=== PATIENT | male | born 1955 | race Caucasian/White ===

== ENCOUNTER 2023-03-06 20:52 | Observation (INO) | payer MEDICARE, MEDICAID, SELFPAY ==
[2023-03-06 20:52] VITALS: BP 89/55; PULSE 94; RESP 16; TEMP 36.7; O2SAT 100
--- NOTE | 2023-03-06 20:55 | XR_ITS ---
The [address] [address] Patient Name: CHITRA BOWLING MRN: [id number] date: 1955 Sex: M Assigned Patient Location: ED.MAIN Current Patient Location: ER Accession/Order Number: [id number] Exam Date: 03/06/2023 21:25 Report Date: 03/06/2023 22:23 At the request of: SUE CRESPO Procedure: XR hip LT min 2V EXAM: XR hip LT min 2V HISTORY: fall COMPARISON: None. TECHNIQUE: 2 views of the left hip FINDINGS: Patient is post left hip arthroplasty with intact prosthesis in normal alignment. No significant periprosthetic lucency seen. No acute osseous fracture is seen. Soft tissues appear unremarkable. XR/XR hip LT min 2V IMPRESSION: No acute fracture or malalignment. Post left hip replacement. Electronically authenticated by: PALOMO KITCHEN Date: 03/06/2023 22:23
--- NOTE | 2023-03-06 20:55 | CT_ITS ---
The [address] [address] Patient Name: CHITRA BOWLING MRN: [id number] date: 1955 Sex: M Assigned Patient Location: ED.MAIN Current Patient Location: Accession/Order Number: [id number] Exam Date: 03/06/2023 21:25 Report Date: 03/06/2023 22:10 At the request of: SUE CRESPO Procedure: CT cervical spine wo con EXAM: CT cervical spine wo con HISTORY: fall COMPARISON: None. TECHNIQUE: Axial CT scans through the cervical spine were obtained without contrast administration. Sagittal and coronal reconstruction images were obtained. Dose reduction techniques were achieved by using automated exposure control and/or adjustment of mA and/or kV according to patient size and/or use of iterative reconstruction technique. FINDINGS: No acute fracture or posttraumatic malalignment is seen. The dens and lateral masses of C1 are symmetric. There is straightening of the normal cervical lordotic curvature. There is mild anterolisthesis of C3 on C4. There are moderate to severe decreased disc height and discovertebral complexes from C4 to C7 without significant central spinal stenosis. There are multilevel neural foraminal narrowing, severe at bilateral C4-5 and C5-6 levels, moderate at bilateral C3-4, mild at left C2-3 and bilateral C6-7 levels, secondary to decreased disc height, uncovertebral hypertrophy and facet arthropathy. The prevertebral soft tissue space appears normal. Visualized neck shows no adenopathy. Vascular calcifications are noted. CT/CT cervical spine wo con IMPRESSION: No visualized acute cervical spine abnormality. Multilevel cervical spondylosis, most prominent at C4-7 levels, as described. Electronically authenticated by: JOHNATHAN REBOLLARU Date: 03/06/2023 22:10
--- NOTE | 2023-03-06 20:55 | XR_ITS ---
The [address] [address] Patient Name: CHITRA BOWLING MRN: [id number] date: 1955 Sex: M Assigned Patient Location: ED.MAIN Current Patient Location: ER Accession/Order Number: [id number] Exam Date: 03/06/2023 21:25 Report Date: 03/06/2023 22:24 At the request of: SUE CRESPO Procedure: XR knee RT 3V EXAMINATION: XR knee RT 3V, , 03/06/2023 9:25 PM EDT INDICATION: fall HISTORY: Ordering Provider Reason for Exam: fall Technologist Note: Additional: COMPARISON: None. TECHNIQUE: Right knee x-ray: 3 view(s). FINDINGS: No acute fracture. Joint alignment is anatomic. Joint spaces are preserved. No significant joint effusion. Soft tissues are within normal limits. XR/XR knee RT 3V IMPRESSION: No acute fracture or traumatic malalignment. Electronically authenticated by: PALOMO KITCHEN Date: 03/06/2023 22:24
--- NOTE | 2023-03-06 20:56 | CT_ITS ---
The [address] [address] Patient Name: CHITRA BOWLING MRN: [id number] date: 1955 Sex: M Assigned Patient Location: ED.MAIN Current Patient Location: Accession/Order Number: [id number] Exam Date: 03/06/2023 21:25 Report Date: 03/06/2023 21:55 At the request of: SUE CRESPO Procedure: CT head/brain wo con EXAM: CT head/brain wo con HISTORY: fall COMPARISON: None. TECHNIQUE: Axial CT scans through the head were obtained without IV contrast administration. Dose reduction techniques were achieved by using: automated exposure control and/or adjustment of mA and /or kV according to patient size and/or use of iterative reconstruction technique. FINDINGS: There is no evidence of acute intracranial hemorrhage or abnormal extra-axial fluid collection. No mass effect or midline shift is seen. There is no evidence of large acute territorial infarction. There is no hydrocephalus. Mild enlarged cerebral sulci, consistent with age appropriate cerebral atrophy. Mild atherosclerotic calcifications of anterior and posterior circulations are seen. To the limit of CT, the posterior fossa appears unremarkable. No definite acute fracture is identified. Soft tissues are unremarkable. The visualized orbits show no abnormal mass. The visualized paranasal sinuses show no air-fluid level. Mastoid air cells are clear. CT/CT head/brain wo con IMPRESSION: No CT evidence of acute intracranial abnormality. Electronically authenticated by: JOHNATHAN UNLU Date: 03/06/2023 21:55
--- NOTE | 2023-03-06 20:56 | XR_ITS ---
The [address] [address] Patient Name: CHITRA BOWLING MRN: [id number] date: 1955 Sex: M Assigned Patient Location: ED.MAIN Current Patient Location: ER Accession/Order Number: [id number] Exam Date: 03/06/2023 21:25 Report Date: 03/06/2023 22:24 At the request of: SUE CRESPO Procedure: XR chest 1V XR chest 1V 03/06/2023 9:25 PM EDT CLINICAL INDICATION: Weakness COMPARISON: None. TECHNIQUE: Portable semiupright AP view of the chest. FINDINGS: There are no tubes or implants noted. There is severe enlargement of the cardiac silhouette. Pulmonary trunk appears dilated. Interstitial and perihilar opacities are seen bilaterally. Probable right lower lobe calcified granuloma. No pneumothorax or pleural effusion. No displaced rib fractures. Osseous structures demonstrate degenerative changes. There is increased density seen in the expected location of the stomach fundus which may represent ingested material. XR/XR chest 1V IMPRESSION: Severe enlargement of the cardiac silhouette with additional findings which may represent mild pulmonary interstitial edema or infectious etiology. Electronically authenticated by: YUNIOR AN Date: 03/06/2023 22:24
--- NOTE | 2023-03-06 20:57 | ED_ITS ---
HPI - General Adult General Chief complaint: Altered Mental Status Stated complaint: ALTERED MENTAL STATUS Time Seen by Provider: 03/06/23 20:55 History of Present Illness HPI narrative: 67-year-old male presents for being unresponsive. Paramedics were called and on their arrival he was sitting on the floor laying up against a wall and he wasn't responsive. They rubbed his sternum and he started responding and now he is fully awake and alert. He states he drank a small amount of tequila tonight. There is no evidence of trauma. He hasn't had a fever and doesn't seem to have any physical complaints Other than left hip and right knee pain. He did not receive Narcan. The patient states he doesn't know what happened. Related Data Allergies Allergy/AdvReac Type Severity Reaction Status Date / Time bee venom protein (honey bee) Allergy Verified 03/06/23 20:57 Review of Systems ROS Narrative A ten point review of systems is negative except as noted above. Exam Narrative Exam Narrative: Nurses note and vital signs reviewed and patient is not hypoxic. General: The patient appears well and in no apparent distress. Patient is resting comfortably on cart. Skin: Warm, dry, no pallor noted. There is no rash noted. Head: Normocephalic, atraumatic Eye: Normal conjunctiva, no drainage, EOMI. PERRL Ears, Nose, Mouth, and Throat: oral mucosa is moist. Nares patent. Cardiovascular: Regular Rate and Rhythm Respiratory: Patient is in no distress, no accessory muscle use, lungs are clear to auscultation, no wheezing, rales or rhonchi Back: non-tender GI: obese soft and nontender Musculoskeletal: The patient has no evidence of calf tenderness, no pitting edema, symmetrical pulses noted bilaterally. he has no deformity to his extremities but seems to have some tenderness to palpation is left hip and his right knee. No bruising noted. Neurological: A&O, normal speech Psychiatric: Cooperative Constitutional Vital Signs, click to edit/add: Last Vital Signs Temp 98.0 F 03/06/23 20:52 Pulse 94 H 03/06/23 20:52 Resp 16 03/06/23 20:52 BP 112/58 03/06/23 21:05 Pulse Ox 100 03/06/23 20:52 O2 Del Method Room Air 03/06/23 20:52 Course Vital Signs Vital signs: Vital Signs Temperature 98.0 F 03/06/23 20:52 Pulse Rate 94 H 03/06/23 20:52 Respiratory Rate 16 03/06/23 20:52 Blood Pressure 89/55 03/06/23 20:52 Pulse Oximetry 100 03/06/23 20:52 Oxygen Delivery Method Room Air 03/06/23 20:52 Temperature 98.0 F 03/06/23 20:52 Pulse Rate 94 H 03/06/23 20:52 Respiratory Rate 16 03/06/23 20:52 Blood Pressure 112/58 03/06/23 21:05 Pulse Oximetry 100 03/06/23 20:52 Oxygen Delivery Method Room Air 03/06/23 20:52 Medical Decision Making MDM Narrative Medical decision making narrative: the patient presented after having what appears to be a syncopal episode. His w orkup is negative including CAT scan of his head and left hip and right knee x- rays. His family is concerned about him and he'll be admitted for observation. Treatment diagnosis and disposition were discussed thoroughly. Differential Diagnosis Differential Diagnosis: syncope, intracranial hemorrhage, dysrhythmia, anemia Lab Data Lab results reviewed: Yes I reviewed the patient's lab results Labs: Lab Results 03/06/23 Range/Units 21:06 WBC 8.4 (4.0-11.0) 10^3/uL RBC 4.78 (4.70-6.10) 10^6/uL Hgb 14.8 (14.0-18.0) g/dL Hct 44.0 (42.0-54.0) % MCV 92.1 (80.0-94.0) fL MCH 31.0 (25.9-34.0) pg MCHC 33.6 (29.9-35.2) g/dL RDW 13.6 (11.0-15.0) % Plt Count 267 (150-450) 10^3/uL MPV 10.9 (9.5-13.5) fL Neut % (Auto) 52.1 (43.0-75.0) % Lymph % (Auto) 34.4 (20.5-60.0) % Appling % (Auto) 8.2 (1.7-12.0) % Eos % (Auto) 3.7 (0.9-7.0) % Baso % (Auto) 1.2 (0.2-2.0) % Neut # (Auto) 4.4 (1.4-6.5) 10^3/uL Lymph # (Auto) 2.9 (1.2-3.8) 10^3/uL Appling # (Auto) 0.7 (0.3-0.8) 10^3/uL Eos # (Auto) 0.3 (0.0-0.7) 10^3/uL Baso # (Auto) 0.1 (0.0-0.1) 10^3/uL Abs Immat Gran (auto) 0.03 (0.00-0.03) 10^3/uL Imm/Tot Granulo (auto) 0.4 (0.0-0.5) % Sodium 141 (136-145) mmol/L Potassium 4.0 (3.5-5.1) mmol/L Chloride 103 (98-107) mmol/L Carbon Dioxide 27.2 (21.0-32.0) mmol/L Anion Gap 14.8 BUN 16.0 (7.0-18.0) mg/dL Creatinine 1.07 (0.70-1.30) mg/dL Est GFR ( Amer) >60 (>=60) Est GFR (Non-Af Amer) >60 (>=60) BUN/Creatinine Ratio 15.0 Glucose 94 (74-106) mg/dL Calcium 9.8 (8.5-10.1) mg/dL Troponin I High Sens 6.0 (4.0-76.1) pg/mL Ethanol Quant 90 mg/dL Imaging Data CT brain, left hip, right knee: Radiologist's impression: Procedure: CT cervical spine wo con EXAM: CT cervical spine wo con HISTORY: fall COMPARISON: None. TECHNIQUE: Axial CT scans through the cervical spine were obtained without contrast administration. Sagittal and coronal reconstruction images were obtained. Dose reduction techniques were achieved by using automated exposure control and/or adjustment of mA and/or kV according to patient size and/or use of iterative reconstruction technique. FINDINGS: No acute fracture or posttraumatic malalignment is seen. The dens and lateral masses of C1 are symmetric. There is straightening of the normal cervical lordotic curvature. There is mild anterolisthesis of C3 on C4. There are moderate to severe decreased disc height and discovertebral complexes from C4 to C7 without significant central spinal stenosis. There are multilevel neural foraminal narrowing, severe at bilateral C4-5 and C5-6 levels, moderate at bilateral C3-4, mild at left C2-3 and bilateral C6-7 levels, secondary to decreased disc height, uncovertebral hypertrophy and facet arthropathy. The prevertebral soft tissue space appears normal. Visualized neck shows no adenopathy. Vascular calcifications are noted. IMPRESSION: No visualized acute cervical spine abnormality. Multilevel cervical spondylosis, most prominent at C4-7 levels, as described. Electronically authenticated by: Richard Pauer - 3P Date: 03/06/2023 22:10 Procedure: CT head/brain wo con EXAM: CT head/brain wo con HISTORY: fall COMPARISON: None. TECHNIQUE: Axial CT scans through the head were obtained without IV contrast administration. Dose reduction techniques were achieved by using: automated exposure control and/or adjustment of mA and /or kV according to patient size and/or use of iterative reconstruction technique. FINDINGS: There is no evidence of acute intracranial hemorrhage or abnormal extra-axial fluid collection. No mass effect or midline shift is seen. There is no evidence of large acute territorial infarction. There is no hydrocephalus. Mild enlarged cerebral sulci, consistent with age appropriate cerebral atrophy. Mild atherosclerotic calcifications of anterior and posterior circulations are seen. To the limit of CT, the posterior fossa appears unremarkable. No definite acute fracture is identified. Soft tissues are unremarkable. The visualized orbits show no abnormal mass. The visualized paranasal sinuses show no air-fluid level. Mastoid air cells are clear. IMPRESSION: No CT evidence of acute intracranial abnormality. Electronically authenticated by: Richard Pauer - 3P Date: 03/06/2023 21:55 Procedure: CT head/brain wo con EXAM: CT head/brain wo con HISTORY: fall COMPARISON: None. TECHNIQUE: Axial CT scans through the head were obtained without IV contrast administration. Dose reduction techniques were achieved by using: automated exposure control and/or adjustment of mA and /or kV according to patient size and/or use of iterative reconstruction technique. FINDINGS: There is no evidence of acute intracranial hemorrhage or abnormal extra-axial fluid collection. No mass effect or midline shift is seen. There is no evidence of large acute territorial infarction. There is no hydrocephalus. Mild enlarged cerebral sulci, consistent with age appropriate cerebral atrophy. Mild atherosclerotic calcifications of anterior and posterior circulations are seen. To the limit of CT, the posterior fossa appears unremarkable. No definite acute fracture is identified. Soft tissues are unremarkable. The visualized orbits show no abnormal mass. The visualized paranasal sinuses show no air-fluid level. Mastoid air cells are clear. IMPRESSION: No CT evidence of acute intracranial abnormality. Electronically authenticated by: JOHNATHAN UNLU Date: 03/06/2023 21:55 Procedure: XR hip LT min 2V EXAM: XR hip LT min 2V HISTORY: fall COMPARISON: None. TECHNIQUE: 2 views of the left hip FINDINGS: Patient is post left hip arthroplasty with intact prosthesis in normal alignment. No significant periprosthetic lucency seen. No acute osseous fracture is seen. Soft tissues appear unremarkable. IMPRESSION: No acute fracture or malalignment. Post left hip replacement. Electronically authenticated by: PALOMO KITCHEN Date: 03/06/2023 22:23 Procedure: XR knee RT 3V EXAMINATION: XR knee RT 3V, , 03/06/2023 9:25 PM EDT INDICATION: fall HISTORY: Ordering Provider Reason for Exam: fall Technologist Note: Additional: COMPARISON: None. TECHNIQUE: Right knee x-ray: 3 view(s). FINDINGS: No acute fracture. Joint alignment is anatomic. Joint spaces are preserved. No significant joint effusion. Soft tissues are within normal limits. IMPRESSION: No acute fracture or traumatic malalignment. Electronically authenticated by: PALOMO KITCHEN Date: 03/06/2023 22:24 Discharge Plan Discharge Chief Complaint: Altered Mental Status Clinical Impression: Syncope Patient Disposition: Admitted as Observation Time of Disposition Decision: 00:07 Condition: Good
[2023-03-06 21:05] VITALS: BP 112/58
[2023-03-06 21:22] LABS: Basophils Absolute Auto 0.1 10^3/uL (0.0-0.1); Basophils Percent Auto 1.2 % (0.2-2.0); Eosinophils Absolute Auto 0.3 10^3/uL (0.0-0.7); Eosinophils Percent Auto 3.7 % (0.9-7.0); Hemoglobin 14.8 g/dL (14.0-18.0); Immature Granulocytes Abs Auto 0.03 10^3/uL (0.00-0.03); Immature Granulocytes Pct Auto 0.4 % (0.0-0.5); Lymphocytes Absolute Auto 2.9 10^3/uL (1.2-3.8); Lymphocytes Percent Auto 34.4 % (20.5-60.0); Mean Corpuscular HGB Conc 33.6 g/dL (29.9-35.2); Mean Corpuscular Volume 92.1 fL (80.0-94.0); Mean Platelet Volume 10.9 fL (9.5-13.5); Monocytes Absolute Auto 0.7 10^3/uL (0.3-0.8); Monocytes Percent Auto 8.2 % (1.7-12.0); Neutrophils Absolute Auto 4.4 10^3/uL (1.4-6.5); Neutrophils Percent Auto 52.1 % (43.0-75.0); Platelet Count 267 10^3/uL (150-450); Red Blood Count 4.78 10^6/uL (4.70-6.10); Red Cell Distribution Width 13.6 % (11.0-15.0); White Blood Count 8.4 10^3/uL (4.0-11.0)
[2023-03-06 21:39] LABS: Ethanol 90 mg/dL
[2023-03-06 21:47] LABS: Anion Gap 14.8; Calcium 9.8 mg/dL (8.5-10.1); Carbon Dioxide 27.2 mmol/L (21.0-32.0); Chloride 103 mmol/L (98-107); Estimated GFR (African America >60 (>=60); Estimated GFR (Non-African Ame >60 (>=60); Glucose 94 mg/dL (74-106); Sodium 141 mmol/L (136-145)
[2023-03-06] MEDS: MORPHINE SULFATE 4 MG/ML VIAL IV (22:41)
[2023-03-06] MEDS: 0.9 % SODIUM CHLORIDE 1,000 ML 1000 ML IV (23:15)
[2023-03-07] VITALS (18 sets, daily range): BP systolic 101–143; BP diastolic 66–86; PULSE 56–75; RESP 18–20; TEMP 36.4–36.7; O2SAT 93–96; BMI 41.8
[2023-03-07] MEDS: KETOROLAC TROMETHAMINE 30 MG/ML VIAL IVP (00:19)
--- NOTE | 2023-03-07 03:00 | CA_ITS ---
Patient: CHITRA BOWLING Exam Date: 03/08/2023 : 1955 Gender:M Ordering : SHAIKH Eugene LINCOLN . Admission #: [id number] Family : DR CHANDA JACKSON M.D. Order #: [id number] CLICK HERE TO VIEW EXAM ECHOCARDIOGRAM REPORT PROCEDURE: CA ECHO DOPPLER COMPLETE INDICATIONS: Syncope, h/o atrial fibrillation, cardiomegaly hypertension, h/o MA COMPARISON: None. DESCRIPTION: COMPLETE ECHOCARDIOGRAM Real-time transthoracic echocardiography with 2D, M-mode, spectral and color flow Doppler performed. QUALITY: Technical quality was adequate. LEFT VENTRICLE: Normal chamber size. Moderate concentric left ventricular hypertrophy. LV EF: Normal left ventricular ejection fraction, (>55%). Unable to assess segmental wall motion abnormality; consider contrast study for better delineation of endocardial borders. DIASTOLIC: Diastolic function is indeterminate. ATRIAL SEPTUM: Visually appears intact. LEFT ATRIUM: Mild dilatation. RIGHT ATRIUM: Mild dilatation. RIGHT VENTRICLE: Normal chamber size. Normal right ventricular systolic function. TRICUSPID VALVE: Normal mobility and thickness. No stenosis with trivial regurgitation. No evidence of pulmonary hypertension.RVSP 30 mmHg MITRAL VALVE: Normal mobility and thickness. No evidence of mitral valve stenosis. Mild mitral annular calcification. No mitral regurgitation. AORTIC VALVE: Normal trileaflet appearance. Mildly calcified aortic valve. No evidence of aortic valve stenosis. Trivial aortic regurgitation. AORTIC ROOT: Normal diameter and appearance. PULMONIC VALVE: Normal thickness and mobility. No stenosis. No regurgitation. PERICARDIUM: Anterior free space; trivial effusion versus fat pad. IVC: Collapses with inspirations. IVC is normal in size. CONCLUSION: 1. Global left ventricular systolic function is normal; visually estimated ejection fraction is 55 to 60% 2. Moderately increased left ventricular wall thickness 3. Diastolic function is indeterminate 4. Biatrial enlargement 5. The right ventricle is normal in size and systolic function 6. No significant valvular abnormalities 7. Anterior free space; trivial effusion versus fat pad Adult Echocardiography Procedure Report Left Ventricle LVEDD (3.7 - 5.6 cm): 4.61 cm LVESD (2.2 - 4.0 cm): 3.24 cm LVIVS thickness (0.6 - 1.2 cm): 1.35 cm LVPW thickness (0.5 - 1.0 cm): 1.25 cm e': 0.09 m/s E - e': 7.65 LVOT Max Gradient: 1.40 mm[Hg] LVOT Area (cm2): 0.59 m/s Peak Velocity (LVOT): 0.59 m/s LVOT Diameter 2.39 cm Left Atrium LA Volume Index (2D A2C): 38.69 ml/m2 Left Atrium Systolic Dimension: 4.15 cm Mitral Valve MV E to A Ratio: 1.16 Mitral Valve A-Wave Peak Velocity: 0.61 m/s Mitral Valve E-Wave Peak Velocity: 0.71 m/s Right Ventricle Aorta AO Root Diam: 4.21 cm Ascending Ao Diam: 3.92 cm Aortic Valve AoV Area (Peak Kristopher): 2.30 cm2, 2.30 cm2 Peak Velocity(Antegrade Flow): 1.15 m/s Peak Gradient(Antegrade Flow): 5.30 mm[Hg] Mean Velocity(Antegrade Flow): 0.79 m/s Mean Gradient(Antegrade Flow): 2.82 mm[Hg] Velocity Time Integral: 23.60 cm Tricuspid Valve Peak Velocity (Regurgitant Flow): 2.04 m/s, 2.58 m/s Pulmonic Valve Mean Gradient: 1.49 mm[Hg] Mean Velocity: 0.57 m/s Peak Velocity: 0.81 m/s, 0.82 m/s Peak Gradient: 2.65 mm[Hg], 2.71 mm[Hg] Right Atrium Right Atrium Systolic Pressure: 53.49 ml, 53.49 ml Dictated by: Aretha Kwan M.D. on 03/09/2023 at 12:44 Approved by: Aretha Kwan M.D. on 03/09/2023 at 12:48
--- NOTE | 2023-03-07 03:11 | W.PM.TELEPN ---
Progress Note: Subjective Subjective Interval history: Chief Complaint: LOC, Fall HPI: 67 y/o Male with history of history of DM II, HTN, HDL, morbid obesity who presents to the hospital for evaluation of loss of consciousness. Patient reports he has been in his normal state of health, no recent illness, 2 weeks ago he had episode of abdominal discomfort nausea and vomiting that self-resolved. Otherwise he has been in his normal state of health. Last evening he had a glass of Tequila and about 30 minutes later he cannot recall any events. Apparently his daughter found him down unresponsive take them several minutes to wake him up. He complained of left hip pain after he woke up. There was no bruising or bleeding noted. Denies any history of syncope, seizure-like activity. Denies any bladder or bowel incontinence, tongue biting, he does have a frontal headache he believes he might hit his head when he fell down. He cannot recall any preceding events of lightheadedness, vertigo, dizziness, palpitations, near-syncope. Denies any change in his medications and his been compliant with his medications. Denies any exertional chest pain or exertional dyspnea. Denies lightheadedness with standing up. Upon arrival to the ER patient is afebrile, normotensive, CT head without acute abnormalities, labs near baseline. Hospital Medicine consulted for further evaluation. Patient did receive morphine for his left hip pain, plain films without any dislocation or fracture. Patient states he has chronic hip pain that he usually takes 2 Tylenol and 1 ibuprofen that usually takes care of the pain. ROS: Negative except for HPI PMHx: DM II, HTN, HDL, Morbid obesity, PSHx: hip replacement SHx: lives with daughter, occasional alcohol intake, denies smoking cigarettes or illicit drug use family history: Noncontributory to today's visit Allergies:Bee venom Home medications: reconciled in chart PE: Gen: lying in bed, in mild distress due to left hip pain, alert and oriented x3 HEENT: normocephalic, atraumatic, EOMI, trachea midline CVS: regular rate and rhythm, no edema Resp: clear lungs, normal respiratory effort GI: obese, nontender, no visible masses Neuro: moving all extremities, no focal deficits Exam Constitutional Vital Signs, click to edit/add: Last Vital Signs Temp 97.6 F 03/07/23 02:02 Pulse 63 03/07/23 02:02 Resp 18 03/07/23 02:02 BP 137/83 03/07/23 02:02 Pulse Ox 96 03/07/23 02:02 O2 Del Method Room Air 03/07/23 02:02 Progress Note: Objective Labs Labs: Short CBC 03/06/23 Range/Units 21:06 WBC 8.4 (4.0-11.0) 10^3/uL Hgb 14.8 (14.0-18.0) g/dL Hct 44.0 (42.0-54.0) % Plt Count 267 (150-450) 10^3/uL BMP 03/06/23 21:06 Sodium 141 Potassium 4.0 Chloride 103 Carbon Dioxide 27.2 BUN 16.0 Creatinine 1.07 Glucose 94 Calcium 9.8 Progress Note: A&P Assessment and Plan (1) Syncope: (2) Atrial fibrillation: (3) Cardiomegaly: (4) Hypertension: (5) Myocardial infarction: Plan Loss of consciousness/Found down - Syncope vs Seizure or alcohol intoxication -Admit to telemetry bed -Check orthostatic vitals -Check Echo and carotid duplex, consider outpatient holter monitor -Neuro-checks, consider EEG -Consider cardiology evaluation -Check CPK level -Check EKG, QT interval Diabetes mellitus type II - check A1c level - hold home metformin, low carb diet, SSI coverage Primary hypertension - Monitor vitals, resume home antihypertensives (Amlodipine, Losartan, Eplerenone) Paroxysmal Afib -On Sotalol, Aspirin Hyperlipidemia - on Lipitor morbid obesity BMI 41 DVT ppx-Lovenox Full Code Medication reconciliation form completed communications: discussed with ER physician, bedside nurse, patient updated of plan of care, all questions answered to their satisfaction disposition: Home when medically stable As the provider of this telehealth evaluation, requested by the patient's evaluating physician, i attest that i introduced myself to the patient, provided my credentials, and determined that telemedicine, via a realtime 2 way interactive audio and video platform is an appropriate and effective means of providing this service. I reviewed the patient chart and had a discussion with the member of the patient treatment team. the patient and I mutually agreed with continuation of this evaluation via telemedicine. the patient consented for the telemedicine evaluation. The nurse was present during the entire time of the encounter and was able to move the stethoscope in appropriate directions, encounter lasted about 30 minutes evaluated at 0330 Telemedicine Attestation Telemedicine Attestation I conducted this encounter from [[place]] via secure live, [id number] video conference with the patient, located at [facility] with [nursing staff]. Prior to the interview, the risks and benefits of telemedicine were discussed with the patient and verbal consent was obtained.
[2023-03-07] MEDS: THIAMINE HCL 200 MG/2 ML VIAL IVP (04:02)
[2023-03-07] MEDS: ENOXAPARIN SODIUM 40 MG/0.4 ML SYRINGE SUBQ (04:04)
[2023-03-07] MEDS: ACETAMINOPHEN 500 MG TABLET 1000 MG PO ×2 (04:04→09:42)
[2023-03-07] MEDS: FOLIC ACID 1 MG TABLET PO (04:05)
[2023-03-07] MEDS: LACTATED RINGER'S SOLUTION 1,000 ML 125 ML IV (04:05)
[2023-03-07 04:52] LABS: Creatine Kinase 112 U/L (39-308)
[2023-03-07] MEDS: LOSARTAN POTASSIUM 25 MG TABLET PO (11:16)
[2023-03-07] MEDS: SOTALOL HCL 80 MG TABLET 120 MG PO ×2 (11:16→21:06)
[2023-03-07] MEDS: ASPIRIN 81 MG TABLET.DR PO (11:16)
[2023-03-07 11:18] LABS: Glucometer 97 mg/dL (74-106)
[2023-03-07] MEDS: IBUPROFEN 600 MG TABLET PO ×2 (11:39→20:02)
--- NOTE | 2023-03-07 11:52 | ECG_ITS ---
[facility] Test Date: 2023-03-07 Pat Name: CHITRA BOWLING Department: Room: [facility] [place] [facility] [place] Gender: Male Dietist: : 1955 Requested By: SHAIKH LATONIA Order Number: [id number] Reading MD: PAL BENNETT Measurements Intervals [place] Rate: 60 P: 42 NE: 293 QRS: 21 QRSD: 102 T: 41 QT: 428 QTc: 432 Interpretive Statements SINUS BRADYCARDIA WITH FIRST DEGREE AV BLOCK LOW QRS VOLTAGE IN PRECORDIAL LEADS [QRS DEFLECTION < 1.0 mV IN CHEST LEADS] ST DEVIATION AND MODERATE T-WAVE ABNORMALITY, CONSIDER ANTERIOR ISCHEMIA [-0.1+ mV T WAVE IN V3/V4] No previous ECG available for comparison Electronically Signed On 03-07-2023 18:45:53 EDT by PAL BENNETT
--- NOTE | 2023-03-07 12:47 | P.HP_ITS ---
H&P: HPI History of Present Illness Chief complaint: Syncope Narrative: 67 y o male with Pmhx of Afib was in his usual state of health when at home he went to kitchen to get some water and then the next thing he knows is that he was on floor. He does not recall passing out, how long he was passed out for. He was confused afterwards but was back to his usual self by the time he arrived to ED via EMS. Prior to syncope - he did not have aura, chest pain, SOB, palpitations, dizziness. This was all very sudden and he did not have any warning signs. He has never passed out before like this. No new medications. Had orthopedic surgery in August. Normal LHC in March 2022 because of abnormal stress test ordered for pre op clearance. Currently complaining of headache and denies any active complaints. Review of Systems ROS Status of ROS 10 or more systems reviewed and unremarkable except as noted in history and below [facility] Medical History (Updated 03/07/23 @ 12:54 by Shaikh Yulissa MD) Acute kidney injury ?N17.9 - Acute kidney failure, unspecified (ICD-10) Anal fistula ?K60.3 - Anal fistula (ICD-10) Atrial fibrillation ?I48.91 - Unspecified atrial fibrillation (ICD-10) Cardiomegaly ?I51.7 - Cardiomegaly (ICD-10) Cholelithiasis and acute cholecystitis with obstruction ?K80.01 - Calculus of gallbladder with acute cholecystitis with obstruction (ICD-10) HLD (hyperlipidemia) ?E78.5 - Hyperlipidemia, unspecified (ICD-10) Hypertension ?I10 - Essential (primary) hypertension (ICD-10) Myocardial infarction ?I21.9 - Acute myocardial infarction, unspecified (ICD-10) Type 2 diabetes mellitus ?E11.9 - Type 2 diabetes mellitus without complications (ICD-10) Surgical History (Updated 03/07/23 @ 02:07 by Tony Perkins) H/O cardiac catheterization ?Z98.890 - Other specified postprocedural states (ICD-10) History of left hip replacement ?Z96.642 - Presence of left artificial hip joint (ICD-10) History of right hip replacement ?Z96.641 - Presence of right artificial hip joint (ICD-10) Family History (Updated 03/07/23 @ 02:08 by Tony Perkins) Brother Family history of hypertension Father Family history of cancer Social History (Updated 03/07/23 @ 02:14 by Tony Perkins) Within the past year, how often did you have a drink containing alcohol: 2-3 times a week Within the past year, how many standard drinks containing alcohol did you have on a typical day: 1 or 2 Within the past year, how often did you have six or more drinks on one occasion: never Total score: 0 Score interpretation: A score less than 4 is consistent with normal alcohol consumption. Smoking status: Former smoker Second hand tobacco smoke exposure: No Non-prescribed substance use: denies use Previous occupational history: Sales Known occupational exposures/hazards: No Highest level of school completed/degree received: some college, no degree Do you want help with school or training: No Are you now , , , , never or living with a partner: In a typical week, how many times do you talk on the telephone with family, friends, or neighbors: 3 or more times per week How often do you get together with friends or relatives: twice per week How often do you attend oriental orthodox or jainism services: never Do you belong to any clubs or organizations such as oriental orthodox groups unions, fraternal or athletic groups, or school groups: yes Total score: 2 Score interpretation: A score of greater than or equal to 2 indicates the lowest level of social isolation. Little interest or pleasure in doing things: not at all Feeling down, depressed, or hopeless: not at all Feel stressed/tense/nervous/anxious/difficulty sleeping: only a little Life stressors: recent of family or friend Due to disability, difficulty making decisions: No Do you think of yourself as: straight/heterosexual Gender Identity: male Meds Home Medications and Allergies Home Medications Medication Instructions Recorded Confirmed Type acetaminophen 500 mg tablet 500 mg PO Q6H PRN pain 03/07/23 03/07/23 History amlodipine 2.5 mg tablet 2.5 mg PO DAILY 03/07/23 03/07/23 History aspirin 81 mg tablet,delayed 81 mg PO DAILY 03/07/23 03/07/23 History release atorvastatin 40 mg tablet 40 mg PO .hs 03/07/23 03/07/23 History celecoxib 100 mg capsule 100 mg PO BID 03/07/23 03/07/23 History diclofenac sodium 1 % topical gel 2 g topical QID 03/07/23 03/07/23 History eplerenone 50 mg tablet 50 mg PO DAILY 03/07/23 03/07/23 History ibuprofen 600 mg tablet 600 mg PO Q6H PRN pain 03/07/23 03/07/23 History losartan 25 mg tablet 25 mg PO DAILY 03/07/23 03/07/23 History metformin 500 mg tablet,extended 500 mg PO QPM 03/07/23 03/07/23 History release 24 hr semaglutide 1 mg/dose (4 mg/3 mL) 1 mg subcut QWEEK 03/07/23 03/07/23 History subcutaneous pen injector (Ozempic) sotalol 120 mg tablet 120 mg PO BID 03/07/23 03/07/23 History torsemide 10 mg tablet 10 mg PO DAILY 03/07/23 03/07/23 History Allergies Allergy/AdvReac Type Severity Reaction Status Date / Time bee venom protein (honey bee) Allergy Verified 03/06/23 20:57 Exam Constitutional Vital Signs, click to edit/add: Last Vital Signs Temp 97.8 F 03/07/23 05:53 Pulse 65 03/07/23 11:55 Resp 18 03/07/23 05:53 BP 120/66 03/07/23 07:38 Pulse Ox 96 03/07/23 05:53 O2 Del Method Room Air 03/07/23 05:53 Documenting provider has reviewed patient's vital signs: yes Common normals: no apparent distress and oriented x3 General appearance: cooperative HENID Common normals: normocephalic and head/scalp atraumatic Head and scalp: normocephalic and atraumatic Eye Common normals: conjunctivae normal and no scleral icterus Conjunctiva: conjunctiva(e) normal Respiratory Common normals: normal respiratory effort and clear to auscultation bilaterally Effort & inspection: able to speak in complete sentences Auscultation: clear to auscultation bilaterally Cardio Common normals: regular rate, S1 normal heart sound and S2 normal heart sound Rate: regular rate Heart sounds: S1 normal and S2 normal GI Common normals: Normal to inspection, nondistended, normoactive bowel sounds present, soft to palpation, non-tender and no hepatosplenomegaly Palpation: soft and no hepatosplenomegaly Extremity Common normals: no clubbing, cyanosis or edema Neuro Common normals: oriented x3, moves all extremities and no focal motor deficits Psych Common normals: mental status grossly normal, denies hallucinations, denies homicidal ideation and denies suicidal ideation Results Labs Labs: Short CBC 03/06/23 Range/Units 21:06 WBC 8.4 (4.0-11.0) 10^3/uL Hgb 14.8 (14.0-18.0) g/dL Hct 44.0 (42.0-54.0) % Plt Count 267 (150-450) 10^3/uL BMP 03/06/23 21:06 Sodium 141 Potassium 4.0 Chloride 103 Carbon Dioxide 27.2 BUN 16.0 Creatinine 1.07 Glucose 94 Calcium 9.8 Cardiac Enzymes 03/06/23 Range/Units 21:06 Total Creatine Kinase 112 (39-308) U/L Assessment and Plan Assessment and Plan (1) Syncope: Assessment and Plan: EKG showed Afib. Now in NSR. Repeat EKG. Ordered 2D ECHO to assess cardiac structure as cardiomegaly noted on CXR Will order CTA to r/o PE Does not appear to be vasovagal syncope Monitor on tele. If everything checks out, will d/c on event monitor and to f/u with cardiology. (2) Atrial fibrillation: Assessment and Plan: In NSR. C/w sotalol (3) Hypertension: Assessment and Plan: C/w home meds. (4) Type 2 diabetes mellitus: Assessment and Plan: SSI while inpatient. (5) HLD (hyperlipidemia): Assessment and Plan: c/w statin
--- NOTE | 2023-03-07 12:52 | CT_ITS ---
The [address] [address] Patient Name: CHITRA BOWLING MRN: [id number] date: 1955 Sex: M Assigned Patient Location: Current Patient Location: Accession/Order Number: [id number] Exam Date: 03/07/2023 14:30 Report Date: 03/07/2023 15:26 At the request of: SHAIKH LATONIA Procedure: CT angio chest CT angio chest, 03/07/2023 2:30 PM EDT INDICATION: Syncope COMPARISON: This study was compared to the prior chest x-ray dated 03/06/2023 TECHNIQUE: Axial low-dose images of 1 millimeters are obtained from the thoracic outlet without contrast . 3-D MIP images were obtained. Dose reduction techniques were achieved by using automated exposure control and/or adjustment of mA and/or kV according to patient size and/or use of iterative reconstruction technique. FINDINGS: No endoluminal filling defect within the main pulmonary arteries, lobar and lobular branches is noted. There is no obvious right ventricle strain. There is cardiomegaly. Enlargement of the ascending aorta is noted measuring 4.2 x 4.5 cm at the main pulmonary artery bifurcation. The right pulmonary artery measures 2.8 cm. The descending aorta measures 2.5 cm. No evidence of dissection. No enlargement of the pulmonary veins in the base of lungs is noted. Calcified granuloma in the right lower lobe is noted. There is bilateral ground glass opacities within the both lungs likely due to infectious or inflammatory process or pulmonary edema. Mild traction bronchiectasis in the upper lobes are noted. The central tracheobronchial tree is unremarkable. No mediastinal lymph node enlargement by size criteria is noted. No pleural or pericardial effusion is noted. Low-attenuation lesion within the liver is not fully characterized by this study and most likely consistent with a hemangioma or simple cyst. The visualized portions of the solid abdominal organs are otherwise unremarkable. Bone: There is no suspicious osteolytic or osteoblastic lesion. CT/CT angio chest IMPRESSION: No pulmonary emboli or dissection is noted. Bilateral groundglass opacities with cardiomegaly and no pleural effusion. The findings may suggest infectious or inflammatory process or pulmonary edema. Clinical correlation is advised. Electronically authenticated by: JEY MARRERO Date: 03/07/2023 15:26
[2023-03-07] MEDS: TORSEMIDE 20 MG TABLET 10 MG PO (13:32)
[2023-03-07] MEDS: ACETAMINOPHEN 325 MG TABLET 650 MG PO (15:49)
[2023-03-07 16:04] LABS: Glucometer 85 mg/dL (74-106)
[2023-03-07 20:31] LABS: Glucometer 121 mg/dL (74-106)
[2023-03-07] MEDS: ATORVASTATIN CALCIUM 40 MG TABLET PO (21:06)
[2023-03-08] VITALS (9 sets, daily range): BP systolic 103–150; BP diastolic 70–79; PULSE 52–69; RESP 17–24; TEMP 36.5–36.6; O2SAT 91–96
[2023-03-08 06:06] LABS: Basophils Absolute Auto 0.1 10^3/uL (0.0-0.1); Basophils Percent Auto 1.6 % (0.2-2.0); Eosinophils Absolute Auto 0.3 10^3/uL (0.0-0.7); Eosinophils Percent Auto 4.5 % (0.9-7.0); Hematocrit 40.4 % (42.0-54.0); Hemoglobin 13.1 g/dL (14.0-18.0); Immature Granulocytes Abs Auto 0.02 10^3/uL (0.00-0.03); Immature Granulocytes Pct Auto 0.3 % (0.0-0.5); Lymphocytes Absolute Auto 1.8 10^3/uL (1.2-3.8); Lymphocytes Percent Auto 27.8 % (20.5-60.0); Mean Corpuscular HGB Conc 32.4 g/dL (29.9-35.2); Mean Corpuscular Hemoglobin 30.3 pg (25.9-34.0); Mean Corpuscular Volume 93.5 fL (80.0-94.0); Mean Platelet Volume 10.8 fL (9.5-13.5); Monocytes Absolute Auto 0.5 10^3/uL (0.3-0.8); Monocytes Percent Auto 7.3 % (1.7-12.0); Neutrophils Absolute Auto 3.7 10^3/uL (1.4-6.5); Neutrophils Percent Auto 58.5 % (43.0-75.0); Platelet Count 186 10^3/uL (150-450); Red Blood Count 4.32 10^6/uL (4.70-6.10); Red Cell Distribution Width 13.6 % (11.0-15.0); White Blood Count 6.4 10^3/uL (4.0-11.0)
[2023-03-08 06:55] LABS: Alanine Aminotransferase 32 U/L (16-63); Albumin Globulin Ratio 0.9; Albumin Level 3.2 g/dL (3.4-5.0); Alkaline Phosphatase 63 U/L (46-116); Anion Gap 7.3; Aspartate Amino Transferase 19 U/L (15-37); BUN Creatinine Ratio 19.4; Calcium 8.8 mg/dL (8.5-10.1); Carbon Dioxide 30.7 mmol/L (21.0-32.0); Chloride 106 mmol/L (98-107); Estimated GFR (African America >60 (>=60); Estimated GFR (Non-African Ame >60 (>=60); Globulin 3.4 g/dL; Glucose 88 mg/dL (74-106); Sodium 140 mmol/L (136-145); Total Protein 6.6 g/dL (6.4-8.2)
[2023-03-08 07:44] LABS: Glucometer 100 mg/dL (74-106)
[2023-03-08] MEDS: ASPIRIN 81 MG TABLET.DR PO (09:10)
[2023-03-08] MEDS: FOLIC ACID 1 MG TABLET PO (09:10)
[2023-03-08] MEDS: LOSARTAN POTASSIUM 25 MG TABLET PO (09:10)
[2023-03-08] MEDS: SOTALOL HCL 80 MG TABLET 120 MG PO (09:11)
[2023-03-08] MEDS: TORSEMIDE 20 MG TABLET 10 MG PO (09:13)
[2023-03-08] MEDS: ENOXAPARIN SODIUM 40 MG/0.4 ML SYRINGE SUBQ (09:13)
[2023-03-08] MEDS: ACETAMINOPHEN 325 MG TABLET 650 MG PO (09:31)
[2023-03-08] MEDS: IBUPROFEN 600 MG TABLET PO (09:32)
[2023-03-08 11:36] LABS: Glucometer 125 mg/dL (74-106)
--- NOTE | 2023-03-08 11:36 | CM.NOTE ---
Rounds made with Dr. Duenas. Dr. Duenas reviewed CT Chest with Mr. 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 Mr. Farrar verbalizes understanding. Plan for discharge today.
--- NOTE | 2023-03-08 13:12 | CA_ITS ---
[facility] Test Date: 2023-03-22 Pat Name: CHITRA BOWLING Department: Room: [facility] Gender: Male Public Service Director: : 1955 Requested By: [id number] Order Number: [id number] Reading MD: PAL BENNETT Interpretive Statements Predominant rhythm is sinus with average rate of 69 bpm Tachycardia - max rate of 142 bpm - 48 episodes of PSVT with longest duration of 7 beats - longest episode of 44 sec with rate between 106-123 bpm Bradycardia - min rate of 33 bpm - longest episode of 1 hour with rates between 41-55 bpm Ventricular ectopy - 234 total (<1% ) - 226 PVC - 8 couplets Patient triggered events: 3 - not associated with symptoms - associated with NSR Impression: Predominant rhythm is sinus with average rate of 69 bpm Fastest rate of 142 bpm and slowest rate of 48 bpm - no pauses - 3-4 episodes of nonconducted P waves, suggestive of Wenckebach - no atrial fibrillation Electronically Signed On 03-22-2023 20:20:38 EDT by PAL BENNETT
--- NOTE | 2023-03-08 13:14 | PM.DS1 ---
DS: Providers Provider Date of admission: 03/07/23 01:41 Primary care physician: Non-Staff Physician, Attending physician on discharge: Shaikh Yulissa Discharging clinician: Shaikh Yulissa Anticipated date of discharge: 03/08/23 DS: Diagnosis Discharge Diagnosis (1) Syncope: Assessment and plan: CTH - no acute finding No abnormal finding on tele 2D ECHO - no sig pathology noted (unofficial report). Will d/c with Holter Monitor for 72 hours. (2) Atrial fibrillation: Assessment and plan: In NSR. Follows [facility]. (3) Hypertension: Assessment and plan: Cw. home medsC.w (4) Type 2 diabetes mellitus: Assessment and plan: C/w home meds (5) HLD (hyperlipidemia): Plan C/w statin DS: Summary Hospital Course Hospital Course: 67 y o male with Pmhx of Afib was in his usual state of health when at home he went to kitchen to get some water and then the next thing he knows is that he was on floor. He does not recall passing out, how long he was passed out for. He was confused afterwards but was back to his usual self by the time he arrived to ED via EMS. Prior to syncope - he did not have aura, chest pain, SOB, palpitations, dizziness. This was all very sudden and he did not have any warning signs. He has never passed out before like this. No new medications. Patient was admitted for observation and w.u for syncope. No abnormality noted on diagnostic w.u including CTH, 2D ECHO and no abnormal rhythm noted on tele CTA chest ordered to r/p PE revealed dilated ascending aorta (4.2 cm) - patient informed and will need f.u for it. Status at Discharge Functional status at discharge: independent ambulation Overall status at discharge: patient is back to baseline Time Spent with Patient Time attestation: Total time spent providing and/or coordinating discharge services: Time spent: greater than 30 minutes Exam Constitutional Vital Signs, click to edit/add: Last Vital Signs Temp 97.7 F 03/08/23 08:16 Pulse 62 03/08/23 12:00 Resp 17 03/08/23 08:16 BP 123/77 03/08/23 08:00 Pulse Ox 96 03/08/23 08:16 O2 Del Method Room Air 03/08/23 08:16 Documenting provider has reviewed patient's vital signs: yes Common normals: no apparent distress and oriented x3 General appearance: cooperative HENMT Common normals: normocephalic and head/scalp atraumatic Head and scalp: normocephalic and atraumatic Eye Common normals: conjunctivae normal and no scleral icterus Conjunctiva: conjunctiva(e) normal Respiratory Common normals: normal respiratory effort and clear to auscultation bilaterally Effort & inspection: able to speak in complete sentences Auscultation: clear to auscultation bilaterally Cardio Common normals: regular rate, S1 normal heart sound and S2 normal heart sound Rate: regular rate Heart sounds: S1 normal and S2 normal GI Common normals: Normal to inspection, nondistended, normoactive bowel sounds present, soft to palpation, non-tender and no hepatosplenomegaly Palpation: soft and no hepatosplenomegaly Extremity Common normals: no clubbing, cyanosis or edema Neuro Common normals: oriented x3, moves all extremities and no focal motor deficits Psych Common normals: mental status grossly normal, denies hallucinations, denies homicidal ideation and denies suicidal ideation DS: Data Data Completed and Pending Labs on day of discharge: Labs from last 24 hours 03/08/23 03/08/23 03/08/23 11:35 07:27 05:36 WBC 6.4 RBC 4.32 L Hgb 13.1 L Hct 40.4 L MCV 93.5 MCH 30.3 MCHC 32.4 RDW 13.6 Plt Count 186 MPV 10.8 Neut % (Auto) 58.5 Lymph % (Auto) 27.8 [place] % (Auto) 7.3 Eos % (Auto) 4.5 Baso % (Auto) 1.6 Neut # (Auto) 3.7 Lymph # (Auto) 1.8 [place] # (Auto) 0.5 Eos # (Auto) 0.3 Baso # (Auto) 0.1 Abs Immat Gran (auto) 0.02 Imm/Tot Granulo (auto) 0.3 Sodium 140 Potassium 4.0 Chloride 106 Carbon Dioxide 30.7 Anion Gap 7.3 BUN 19.0 H Creatinine 0.98 Est GFR ( Amer) >60 Est GFR (Non-Af Amer) >60 BUN/Creatinine Ratio 19.4 Glucose 88 Calcium 8.8 Total Bilirubin 1.0 AST 19 ALT 32 Alkaline Phosphatase 63 Total Protein 6.6 Albumin 3.2 L Globulin 3.4 Albumin/Globulin Ratio 0.9 POC Glucose 125 H 100 03/07/23 03/07/23 20:29 16:00 WBC RBC Hgb Hct MCV MCH MCHC RDW Plt Count MPV Neut % (Auto) Lymph % (Auto) [place] % (Auto) Eos % (Auto) Baso % (Auto) Neut # (Auto) Lymph # (Auto) [place] # (Auto) Eos # (Auto) Baso # (Auto) Abs Immat Gran (auto) Imm/Tot Granulo (auto) Sodium Potassium Chloride Carbon Dioxide Anion Gap BUN Creatinine Est GFR ( Amer) Est GFR (Non-Af Amer) BUN/Creatinine Ratio Glucose Calcium Total Bilirubin AST ALT Alkaline Phosphatase Total Protein Albumin Globulin Albumin/Globulin Ratio POC Glucose 121 H 85 Discharge Plan Discharge Disposition: Home, Self-Care Condition: Good Discharge Medications: Continued atorvastatin 40 mg tablet 40 mg PO .hs amlodipine 2.5 mg tablet 2.5 mg PO DAILY aspirin 81 mg tablet,delayed release (DR/EC) 81 mg PO DAILY sotalol 120 mg tablet 120 mg PO BID acetaminophen 500 mg tablet 500 mg PO Q6H PRN (Reason: pain) losartan 25 mg tablet 25 mg PO DAILY ibuprofen 600 mg tablet 600 mg PO Q6H PRN (Reason: pain) celecoxib 100 mg capsule 100 mg PO BID eplerenone 50 mg tablet 50 mg PO DAILY torsemide 10 mg tablet 10 mg PO DAILY Ozempic 1 mg/dose (4 mg/3 mL) pen injector 1 mg subcut QWEEK diclofenac sodium 1 % gel 2 g topical QID Rx Instructions: apply to single elbow, wrist or hand; for hand includes palm/fingers/back of hand metformin 500 mg tablet extended release 24 hr 500 mg PO QPM Activity: increase activity as tolerated Diet: advance to your usual diet Forms: Portal Instructions Follow Up Appointments: Follow Up with Dr. Trent Wednesday03/12/2023 at 2 p.m. f/u PCP in one week
--- NOTE | 2023-03-09 11:36 | CM.DCFOLLOWU ---
Person spoke with: daughter Annetta How are you feeling? Annetta stated he was doing much better yesterday evening but is at work currently and has not spoken with him yet today. How is your pain? n/a Did you understand your discharge instructions? Yes Do you have any questions about your discharge instructions? No Were you given any prescriptions at discharge? No Were you able to get your prescriptions filled? n/a Do you understand how to take your medications as ordered? yes Do you have any questions about your follow up appointment and do you plan to keep your follow up appointment? plans on keeping both appointments, one with Dr. Trent and one with Dr. Huber. Is there anything else that you would like to discuss? mentioned his heart monitor fell off last night and he contacted the road design draftsperson, he replaced patches. Informed Annetta to have him contact the hospital if he has further issues. She voiced understanding and stated they would. Questions/Comments/Concerns/Other: n/a
== END 2023-03-08 14:37 | disposition home or self-care (01) ==
LOC: ER 03-07 00:07 → MS 03-07 01:50
PROVIDERS: Admitting Provider Internal Medicine; Emergency Provider Emergency Medicine; Visit Provider Internal Medicine
DX: R55 Syncope and collapse (principal); I48.0 Paroxysmal atrial fibrillation; E11.9 Type 2 diabetes mellitus without complications; I11.9 Hypertensive heart disease without heart failure; E78.5 Hyperlipidemia, unspecified; E66.01 Morbid (severe) obesity due to excess calories; Z68.41 Body mass index [BMI] 40.0-44.9, adult; I25.2 Old myocardial infarction; Z79.899 Other long term (current) drug therapy; Z79.84 Long term (current) use of oral hypoglycemic drugs; Z79.82 Long term (current) use of aspirin; Z96.643 Presence of artificial hip joint, bilateral; Z87.891 Personal history of nicotine dependence
CPT/HCPCS: 36415; 70450; 71045; 71275; 72125; 73502; 73562; 80048; 80053; 80320; 82550; 82948; 83735; 84484; 85025; 93005; 93242; 93306; 96361; 96372; 96374; 96375; 99285; G0378; Q3014; Q9967

== ENCOUNTER 2024-11-18 08:17 | Outpatient (OUT) | payer MEDICARE, MEDICAID, SELFPAY ==
--- OUTSIDE RECORDS SUMMARY | 2018-01-10 05:08 | XMS_ITS | Continuity of Care Document ---
Author Organization [facility] Address [address] [place] [address] Phone Care Team Providers Care Market Risk Specialist Name Role Phone Jonas Cannon MD Unavailable Unavailable Allergies, Adverse Reactions, Alerts Substance Reaction Status Criticality BEE STING KIT throat swelling(severe) Active No Information Medications Medication Instructions Dosage Effective Dates (start - stop) Status Comments amlodipine 5 mg tablet take 1 tablet by oral route every day 5 MG - Active atorvastatin 10 mg tablet take 1 tablet by oral route every day 10 MG - Active lisinopril 20 mg-hydrochlorothiaz avani 12.5 mg tablet take 1 tablet by oral route every day 1.00 tablet - Active amlodipine 5 mg tablet take 1 tablet by oral route every day 5 MG - No Longer Active atorvastatin 10 mg tablet take 1 tablet by oral route every day 10 MG - No Longer Active lisinopril 20 mg-hydrochlorothiaz avani 12.5 mg tablet take 1 tablet by oral route every day 1.00 tablet - No Longer Active Procedures Procedure Date ROUTINE VENIPUNCTURE OFFICE/OUTPATIENT VISIT, EST IMMUNIZATION ADMIN FLU VAC NO PRSV 4 ALMAS 3 YRS+ Advance Directives Directive Yes / No Effective Date File Name No Information Encounters Encounter Description Practice Location Reason(s) For Visit Diagnoses Date Provider Providers Copied on Encounter [facility], [address], [place], [id number] , [place] tel:[phone] [facility] No Information 8 Davis Mcdaniel. [address], [place], [id number] , [place]. tel: [phone] [facility], [address] [place] [address], [id number] , [place] tel: [phone] [facility] No Information 8 Davis Mcdaniel. [address], [place], [id number] , [place]. tel: [phone] [facility], [address] [place] [address], [id number] , [place] tel: [phone] [facility] No Information 8 Davis Mcdaniel. [address] [place] [address], [id number] , [place]. tel: [phone] OFFICE/OUTPA TIENT VISIT, [facility] ([place], [place]), [address] [place] [address], [id number] , [place] tel: [phone] [facility] follow up (chief complaint) Type 2 diabetes mellitus without complicationsChronic atrial fibrillationEssential (primary) hypertensionHyperlipi demia 8 Davis Mcdaniel. [address] [place] [address], [id number] , [place]. tel: [phone] [facility], [address] [place] [address], [id number] , [place] tel: [phone] [facility] [place]: (chief complaint) Essential (primary) hypertensionObesity, unspecifiedBody mass index (BMI) 40.0-44.9, adultBenign prostatic hyperplasia w/o lower urinary tract symptom 8 Abdias Cobian. [address] [place] [address], [id number], [place]. tel: [phone] Family History Family Member Type Diagnosis Age At Onset Mother Problem (finding) alzheimer's disease Father Problem (finding) cancer of colon Brother Problem (finding) hypertension Immunizations Vaccine Date Status Comments Influenza virus vaccine, injectable, quadrivalent, split virus, preservative free, 3 years or older Fluarix, Flulaval or Fluzone Quad administered Source: New Immuniza tion Record Payers Payer name Insurance type Covered libertarian ID Authoriza tion(s) Self Pay Cap 09 Social History Type Description Quantity Date Captured Comments Alcohol Use Details Unknown Caffeine Use Details Unknown Tobacco Use Status No Information Smoking Status No Information Sex Male Sexual Orientation Straight or heterosexual Gender Identity Male Chief Complaint And Reason For Visit No Information Reason For Referral Reason For Referral No Information Plan Of Treatment Date Type Action Status Goal Diabetes screening. Due on A due Goal ECG. Due on due Goal Dental exam. Due on 018 due Goal Lipid panel. Due on 019 due Goal Pneumococcal vaccine. Due on due Goal Hemoglobin A1C. Due on due Goal Urine microalbumin. Due on A due Goal Dilated eye exam. Due on Jan due Goal Foot exam. Due on 8 due Goal ECG. Due on due Goal Diabetes screening. Due on due Goal Urinalysis. Due on 18 due Goal Pneumococcal vaccine. Due on due Goal Foot exam. Due on 8 due Goal Dental exam. Due on 018 due Goal Urine microalbumin. Due on due Goal Dilated eye exam. Due on October due Goal Diabetes screening. Due on A due Goal ECG. Due on due Goal Urinalysis. Due on due Goal Lipid panel. Due on due Goal Pneumococcal vaccine. Due on due Goal Dilated eye exam. Due on Sep due Goal Foot exam. Due on 8 due Goal Dental exam. Due on due Goal Urine microalbumin. Due on A due Goal Lipid panel. Due on due Goal Pneumococcal vaccine. Due on due Goal Dilated eye exam. Due on Sep due Goal Foot exam. Due on due Goal Dental exam. Due on due Goal Hemoglobin A1C. Due on due Goal Urine microalbumin. Due on A due Goal Urinalysis. Due on due Goal Diabetes screening. Due on A due Goal ECG. Due on due Goal ECG. Due on due Goal Urinalysis. Due on due Goal Diabetes screening. Due on due Future Order: Lab Order UA/M w/r flx Culture, Routine ([id number]), Ordered on: Ordered Future Order: Lab Order Lipid Pa mare ([id number]), Ordered on: Ordered Future Order: Lab Order PSA Tota l+% Free ([id number]), Ordered on: Ordered Future Order: Lab Order TSH+Free T4 ([id number]), Ordered on: Ordered Future Order: Lab Order CBC With Differential/Platelet ([id number]), Ordered on: Ordered Future Order: Lab Order Comp. Me tabolic Panel (14) ([id number]), Ordered on: Ordered History Of Present Illness Encounter Date Complaint History Of Prese nt Illness follow up Patient here to follow up. Patient was here in Jun. and seen Dr. Calero. Patient was told to come back and follow up. Patient was told by Abdias he was waiting for office notes from Dr. Miller. to see blood work. Renu was not happy with Paul because he was wanting him to return to have blood work done every month. Patient is uninsured and couldn't. Patient would like refills on all his med but for a 90 day supply. No other issues at this time.Ajith Denton. 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 Is on Lisinopril - HCTZ and Atorvastatin and Amlodopine. Works for [employer]. Had repair of an anal fissure and left ganglion cyst of the left wrist. Has had high blood pressure all my life. Has had cardioversions for A-fib, at least a few. His last chemistries were done this past March. Had a colonoscopy four or 5 years ago and it was negative. Functional Status Date Functional Assessmen t No Information Instructions Date Instruction Additional Infor mation No Information Assessments Type Assessment Date No Information Patient Care Teams Name Effective Dates (start - stop) Status Members No Information
--- OUTSIDE RECORDS SUMMARY | 2024-11-18 08:24 | XMS_ITS | Clinical Summary ---
Author Organization [facility] Address [address] [place] [address] Care Team Providers Care Cable Tester Name Role Phone Dewayne Huber MD Primary Care Provider Allergies Active Allergy Reactions Criticality Noted Date Comments Bee Venom 09/21/2024 Iodine 09/21/2024 Medications atorvastatin (Lipitor) 40 MG tablet Take 40 mg by mouth Daily Active torsemide (Demadex) 10 MG tablet Take 10 mg by mouth Daily Active amLODIPine (Norvasc) 2.5 MG tablet Take by mouth Daily Active cyanocobalamin (Vitamin B-12) 100 MCG tablet Take 100 mcg by mouth Daily Active zinc gluconate 50 MG tablet Take 50 mg by mouth Daily Active magnesium 30 MG tablet Take 30 mg by mouth in the morning and 30 mg before bedtime. Active [place]-3 Fatty Acids (Fish Oil) 1000 MG capsule delayed-release Take 1,000 mg by mouth in the morning and 1,000 mg before bedtime. Active metFORMIN (Glucophage) 500 MG tablet Take 500 mg by mouth in the morning. Take with meals. Active eplerenone (Inspra) 50 MG tablet Take 50 mg by mouth Daily Active dabigatran etexilate (Pradaxa) 150 MG capsule Take 150 mg by mouth in the morning and 150 mg before bedtime. Do not crush or chew. Active celecoxib (CeleBREX) 100 MG capsule Take 100 mg by mouth in the morning and 100 mg before bedtime. Active Active Problems No known active problems Encounters Date Type Department Care Team Description 09/21/2024 8:00 AM EDT Office Visit [facility] [address] [place] [id number] Kvng Davison DPM Ingrowing nail, left great toe (Primary Dx); Left foot pain; Xerosis cutis; Nail dystrophy; Pain in toes of both feet 09/21/2024 Bamboo flowsheet [facility] [address] [place] [id number] Kvng Davison DPM 09/21/2024 Travel 09/13/2024 Telephone [facility] [address] [place] [phone] Kvng Davison DPM from Last 3 Months Social History Tobacco Use Types Packs/Day Years Used Date Smoking Tobacco: Never Assessed Sex and Gender Information Value Date Recorded Sex Assigned at Not on file Legal Sex Male 6:41 PM EDT Gender Identity Not on file Sexual Orientation Not on file Last Filed Vital Signs Vital Sign Reading Time Taken Comments Blood Pressure 128/92 05/05/2018 12:00 PM EST Pulse - - Temperature - - Respiratory Rate - - Oxygen Saturation - - Inhaled Oxygen Concentration - - Weight 128 kg (283 lb 3.2 oz) 05/05/2018 12:00 P M EST Height 170.8 cm (5' 7.25 ) 05/05/2018 12:[address] Body Mass Index 44.03 05/05/2018 12:00 PM EST Plan of Treatment Health Maintenance Due Date Last Done Comments CT Colonography 1956 Colonoscopy 1955 Colorectal Cancer Screening 1955 FIT-DNA 1955 FIT 1956 FOBT 1955 Sigmoidoscopy 1955 Influenza Vaccine (Season Ended) 2025 04/28/2021, 04/12/2020, 03/23/2020, Additional history exists Pneumococcal Vaccine: 65+ Years Completed 3 Insurance MEDICARE MEDICAID [place] [employer] MED[employer] [employer]AGE Care Teams Cable Tester Relationship Specialty Start Date End Date Dewayne Huber MD [address] [place] [id number] PCP - General Family Medicine 09/21/24
[2024-11-18 09:44] LABS: Albumin Level 3.5 g/dL (3.4-5.0); Anion Gap 13.1; BUN Creatinine Ratio 21.8; Calcium 9.4 mg/dL (8.5-10.1); Carbon Dioxide 29.8 mmol/L (21.0-32.0); Chloride 104 mmol/L (98-107); Estimated GFR (African America >60 (>=60 mL/min/1.73m^2); Estimated GFR (Non-African Ame >60 (>=60 mL/min/1.73m^2); Glucose 100 mg/dL (74-106); Phosphorus 4.3 mg/dL (2.6-4.7); Potassium 3.9 mmol/L (3.5-5.1); Sodium 143 mmol/L (136-145)
== END 2024-11-18 08:18 | disposition home or self-care (01) ==
DX: I48.19 Other persistent atrial fibrillation (principal)
CPT/HCPCS: 36415; 80069